=== PATIENT | female | born 1995 | race American Indian/Alaskan Native ===

== ENCOUNTER 2016-10-30 08:47 | Inpatient (IN) | payer MEDICAID ==
--- NOTE | 2016-10-30 09:42 | History and Physical Report ---
History of Present Illness Date of examination: 10/30/16 Date of admission: 10/30/16 08:51 Chief complaint: IOL for Gestational Hypertension and abnormal labs History of present illness: Pt is a 21yo @ 39 weeks admitted for IOL for gestational hypertension. Is a patient of [facility] since 7.3 weeks. Course has been uneverntful complicated by increasing BP during . Co managed by [facility]. GBS negative. Past History Past Medical History: no pertinent history Past Surgical History: no surgical history Family/Genetic History: hypertension, other (MS) Social history: single. denies: smoking, alcohol abuse, prescription drug abuse , IV drug use - Obstetrical History Expected Date of Delivery: 11/06/16 Actual Gestation: 39 Week(s) 0 Day(s) : 1 Para: 0 Hx # Term Pregnancies: 0 Number of Pregnancies: 0 Spontaneous Abortions: 0 Induced : 0 Number of Living Children: 0 Medications and Allergies Allergies Allergy/AdvReac Type Severity Reaction Status Date / Time No Known Allergies Allergy Unverified 02/12/14 16:02 Home Medications Medication Instructions Recorded Confirmed Last Taken Type Acetaminophen/Codeine [Tylenol #3] 1 tab PO Q6H PRN #14 tab 02/12/14 Unknown Rx Amoxicillin [Trimox CAP] 500 mg PO Q8H #30 capsule 02/12/14 Unknown Rx Ondansetron [Zofran Odt] 4 mg PO Q4H #14 tab.rapdis 02/12/14 Unknown Rx Review of Systems All systems: negative - Vital Signs Vital signs: Vital Signs Pulse BP 116 H 179/87 10/30/16 09:17 10/30/16 09:17 Temp Pulse Resp BP Pulse Ox 116 H 179/87 10/30/16 09:17 10/30/16 09:17 - Physical Exam Cardiovascular: Regular rate Lungs: Positive: Normal air movement Vagina: Positive: normal moisture Uterus: Positive: enlarged Extremities: Positive: normal Deep Tendon Reflex Grade: Normal +2 - Obstetrical FHR: category 1 Uterine Contraction Monitor Mode: External Cervical Dilatation: 1.5 Cervical Effacement Percentage: 50 station: -1 Uterine Contraction Pattern: Irregular Uterine Tone Measurement Phase: Resting Uterine Contraction Intensity: Moderate Results All other labs normal. Assessment and Plan A: IUP@ 39 weeks, IOL for GHTN Category 1 tracing Comfortable with contractions GBS negative P: Admit for IOL PIH labs Continuous monitoring Pitocin argumentation IV pain medication/epidural per pt desire
[2016-10-30] MEDS ORDERED: XYLOCAINE 2% INFILTRATI ONE ×2 (10:00→18:38)
[2016-10-30] MEDS ORDERED: NARCAN 0.4 MG/1 ML IV PRN (10:00)
[2016-10-30] MEDS ORDERED: SUBLIMAZE IV PRN (10:00)
[2016-10-30] MEDS ORDERED: BRETHINE IVP PRN (10:00)
[2016-10-30] MEDS ORDERED: STADOL IV PRN (10:00)
[2016-10-30] MEDS ORDERED: PITOCin/NS 20 UNIT/1000ML DRIP 20 UNITS/1,000 ML BAG IV SCH (10:00)
[2016-10-30] MEDS ORDERED: BRETHINE SUB-Q PRN (10:00)
[2016-10-30] MEDS ORDERED: ePHEDrine SULFATE IV PRN (10:00)
[2016-10-30] MEDS ORDERED: PHENERGAN PO PRN (10:00)
[2016-10-30 12:03] LABS: Hematocrit 38.3 % (30.3-42.9); Hemoglobin 12.4 gm/dl (10.1-14.3); Mean Corpuscular HGB Conc 32 % (30-34); Mean Corpuscular Hemoglobin 29 pg (28-32); Mean Corpuscular Volume 90 fl (79-97); Platelet Count 201 K/mm3 (140-440); Red Blood Count 4.24 M/mm3 (3.65-5.03); Red Cell Distribution Width 14.4 % (13.2-15.2); White Blood Count 10.8 K/mm3 (4.5-11.0)
[2016-10-30] MEDS: LACTATED RINGERS 1,000 ML IV SCH ×2 (12:21→16:02)
[2016-10-30] MEDS: PITOCin/NS 30 UNIT/500ML 30 UNITS/500 ML BAG IV SCH ×9 (12:27→18:10)
[2016-10-30] MEDS ORDERED: CERVIDIL VG ONE (19:00)
[2016-10-30 21:37] LABS: Bacteria,Urine 2+ /HPF (Negative); Bilirubin,Urine NEG (Negative); Blood,Urine NEG (Negative); Ketones,Urine NEG (Negative); Leukocyte Esterase,Urine LG (Negative); Mucus,Urine 3+ /HPF; Nitrite,Urine NEG (Negative); Urobilinogen,Urine < 2.0 mg/dL (<2.0)
[2016-10-30 21:41] LABS: Alanine Aminotransferase 19 units/L (7-56); Lactate Dehydrogenase 383 units/L (91-180)
[2016-10-31] MEDS: LACTATED RINGERS 1,000 ML IV SCH ×4 (02:44→15:45)
--- NOTE | 2016-10-31 06:41 | Progress Note ---
Assessment and Plan A: IUP@ 39 weeks, IOL for GHTN Category 1 tracing Comfortable with contractions GBS negative P: Continue routine labor management Continuous monitoring Hold Pitocin argumentation 1900 for dinner Cervidil overnight IV pain medication/epidural per pt desire Subjective - Subjective Date of service: 10/31/16 Principal diagnosis: IOL Interval history: Pt is a 21yo @ 39 weeks admitted for IOL for gestational hypertension. Is a patient of [facility] since 7.3 weeks. Course has been uneverntful complicated by increasing BP during . Co managed by [facility]. GBS negative. Objective - Vital Signs Vital Signs: Vital Signs - 12hr 10/30/16 10/30/16 10/30/16 18:53 18:54 18:59 Temperature Pulse Rate 99 H 95 H 89 Pulse Rate [ From Monitor] Respiratory Rate Blood Pressure Blood Pressure [Right Arm] O2 Sat by Pulse 82 L 97 97 Oximetry 10/30/16 10/30/16 10/30/16 19:01 19:04 19:09 Temperature Pulse Rate 92 H 95 H 99 H Pulse Rate [ From Monitor] Respiratory Rate Blood Pressure 109/53 Blood Pressure [Right Arm] O2 Sat by Pulse 96 96 Oximetry 10/30/16 10/30/16 10/30/16 19:14 19:28 19:29 Temperature 98.4 F Pulse Rate 89 95 H Pulse Rate [ 95 H From Monitor] Respiratory 20 Rate Blood Pressure 156/80 Blood Pressure 156/80 [Right Arm] O2 Sat by Pulse 96 Oximetry 10/30/16 10/30/16 10/30/16 21:30 21:31 21:36 Temperature Pulse Rate 100 H 101 H 109 H Pulse Rate [ From Monitor] Respiratory Rate Blood Pressure 123/58 Blood Pressure [Right Arm] O2 Sat by Pulse 97 98 Oximetry 10/30/16 10/30/16 10/30/16 21:41 21:46 21:51 Temperature Pulse Rate 101 H 105 H 108 H Pulse Rate [ From Monitor] Respiratory Rate Blood Pressure Blood Pressure [Right Arm] O2 Sat by Pulse 98 98 98 Oximetry 10/30/16 10/30/16 10/30/16 21:56 22:01 22:06 Temperature Pulse Rate 109 H 106 H 105 H Pulse Rate [ From Monitor] Respiratory Rate Blood Pressure Blood Pressure [Right Arm] O2 Sat by Pulse 97 98 98 Oximetry 10/30/16 10/30/16 10/30/16 22:11 22:16 22:21 Temperature Pulse Rate 96 H 99 H 98 H Pulse Rate [ From Monitor] Respiratory Rate Blood Pressure Blood Pressure [Right Arm] O2 Sat by Pulse 97 98 98 Oximetry 10/30/16 10/30/16 10/30/16 22:26 22:31 22:36 Temperature Pulse Rate 97 H 88 91 H Pulse Rate [ From Monitor] Respiratory Rate Blood Pressure 115/53 Blood Pressure [Right Arm] O2 Sat by Pulse 97 97 97 Oximetry 10/30/16 10/30/16 10/30/16 22:41 22:46 22:51 Temperature Pulse Rate 86 96 H 92 H Pulse Rate [ From Monitor] Respiratory Rate Blood Pressure Blood Pressure [Right Arm] O2 Sat by Pulse 97 97 97 Oximetry 10/30/16 10/30/16 10/30/16 22:56 23:01 23:06 Temperature Pulse Rate 95 H 89 92 H Pulse Rate [ From Monitor] Respiratory Rate Blood Pressure Blood Pressure [Right Arm] O2 Sat by Pulse 97 96 96 Oximetry 10/30/16 10/30/16 10/30/16 23:11 23:16 23:21 Temperature Pulse Rate 82 86 102 H Pulse Rate [ From Monitor] Respiratory Rate Blood Pressure Blood Pressure [Right Arm] O2 Sat by Pulse 97 97 98 Oximetry 10/30/16 10/30/16 10/30/16 23:26 23:31 23:32 Temperature Pulse Rate 111 H 93 H 93 H Pulse Rate [ From Monitor] Respiratory Rate Blood Pressure 117/60 Blood Pressure [Right Arm] O2 Sat by Pulse 97 99 Oximetry 10/30/16 10/30/16 10/30/16 23:40 23:53 23:58 Temperature 98.6 F Pulse Rate 94 H 99 H Pulse Rate [ From Monitor] Respiratory 20 Rate Blood Pressure Blood Pressure [Right Arm] O2 Sat by Pulse 100 100 Oximetry 10/31/16 10/31/16 10/31/16 00:03 00:08 00:13 Temperature Pulse Rate 97 H 102 H 92 H Pulse Rate [ From Monitor] Respiratory Rate Blood Pressure Blood Pressure [Right Arm] O2 Sat by Pulse 100 100 100 Oximetry 10/31/16 10/31/16 10/31/16 00:18 00:23 00:37 Temperature Pulse Rate 97 H 99 H 104 H Pulse Rate [ From Monitor] Respiratory Rate Blood Pressure Blood Pressure [Right Arm] O2 Sat by Pulse 100 100 100 Oximetry 10/31/16 10/31/16 10/31/16 00:42 00:47 00:52 Temperature Pulse Rate 101 H 98 H 103 H Pulse Rate [ From Monitor] Respiratory Rate Blood Pressure Blood Pressure [Right Arm] O2 Sat by Pulse 99 99 99 Oximetry 10/31/16 10/31/16 10/31/16 00:57 01:02 01:07 Temperature Pulse Rate 93 H 108 H 91 H Pulse Rate [ From Monitor] Respiratory Rate Blood Pressure Blood Pressure [Right Arm] O2 Sat by Pulse 99 99 99 Oximetry 10/31/16 10/31/16 10/31/16 01:12 01:17 01:22 Temperature Pulse Rate 102 H 99 H 98 H Pulse Rate [ From Monitor] Respiratory Rate Blood Pressure Blood Pressure [Right Arm] O2 Sat by Pulse 98 99 98 Oximetry 10/31/16 10/31/16 10/31/16 01:27 01:33 01:38 Temperature Pulse Rate 118 H 106 H 111 H Pulse Rate [ From Monitor] Respiratory Rate Blood Pressure Blood Pressure [Right Arm] O2 Sat by Pulse 97 99 99 Oximetry 10/31/16 10/31/16 10/31/16 01:43 01:48 01:53 Temperature Pulse Rate 98 H 104 H 101 H Pulse Rate [ From Monitor] Respiratory Rate Blood Pressure Blood Pressure [Right Arm] O2 Sat by Pulse 97 96 98 Oximetry 10/31/16 10/31/16 10/31/16 01:58 02:03 02:08 Temperature Pulse Rate 113 H 106 H 96 H Pulse Rate [ From Monitor] Respiratory Rate Blood Pressure Blood Pressure [Right Arm] O2 Sat by Pulse 97 95 96 Oximetry 10/31/16 10/31/16 10/31/16 02:13 02:18 02:23 Temperature Pulse Rate 101 H 95 H 98 H Pulse Rate [ From Monitor] Respiratory Rate Blood Pressure Blood Pressure [Right Arm] O2 Sat by Pulse 96 95 96 Oximetry 10/31/16 10/31/16 10/31/16 02:28 02:31 02:33 Temperature Pulse Rate 99 H 111 H 110 H Pulse Rate [ From Monitor] Respiratory Rate Blood Pressure 126/61 Blood Pressure [Right Arm] O2 Sat by Pulse 95 96 Oximetry 10/31/16 10/31/16 10/31/16 02:38 02:41 02:43 Temperature 97.9 F Pulse Rate 98 H 94 H Pulse Rate [ From Monitor] Respiratory 20 Rate Blood Pressure Blood Pressure [Right Arm] O2 Sat by Pulse 96 96 Oximetry 10/31/16 10/31/16 10/31/16 02:48 02:53 02:58 Temperature Pulse Rate 94 H 94 H 85 Pulse Rate [ From Monitor] Respiratory Rate Blood Pressure Blood Pressure [Right Arm] O2 Sat by Pulse 96 96 96 Oximetry 10/31/16 10/31/16 10/31/16 03:03 03:08 03:13 Temperature Pulse Rate 100 H 89 93 H Pulse Rate [ From Monitor] Respiratory Rate Blood Pressure Blood Pressure [Right Arm] O2 Sat by Pulse 95 96 96 Oximetry 10/31/16 10/31/16 10/31/16 03:16 03:18 03:23 Temperature Pulse Rate 91 H 107 H 92 H Pulse Rate [ From Monitor] Respiratory Rate Blood Pressure Blood Pressure [Right Arm] O2 Sat by Pulse 94 97 96 Oximetry 10/31/16 10/31/16 10/31/16 03:28 03:30 03:33 Temperature Pulse Rate 99 H 88 88 Pulse Rate [ From Monitor] Respiratory Rate Blood Pressure 131/60 Blood Pressure [Right Arm] O2 Sat by Pulse 97 96 Oximetry 10/31/16 10/31/16 10/31/16 03:38 03:43 03:48 Temperature Pulse Rate 75 85 76 Pulse Rate [ From Monitor] Respiratory Rate Blood Pressure Blood Pressure [Right Arm] O2 Sat by Pulse 96 97 96 Oximetry 10/31/16 10/31/16 10/31/16 03:53 03:58 04:03 Temperature Pulse Rate 89 79 85 Pulse Rate [ From Monitor] Respiratory Rate Blood Pressure Blood Pressure [Right Arm] O2 Sat by Pulse 96 96 97 Oximetry 10/31/16 10/31/16 10/31/16 04:08 04:13 04:18 Temperature Pulse Rate 84 86 107 H Pulse Rate [ From Monitor] Respiratory Rate Blood Pressure Blood Pressure [Right Arm] O2 Sat by Pulse 96 96 97 Oximetry 10/31/16 10/31/16 10/31/16 04:23 04:28 04:31 Temperature Pulse Rate 79 98 H 76 Pulse Rate [ From Monitor] Respiratory Rate Blood Pressure 109/56 Blood Pressure [Right Arm] O2 Sat by Pulse 97 97 Oximetry 10/31/16 10/31/16 10/31/16 04:33 04:38 04:43 Temperature Pulse Rate 83 83 82 Pulse Rate [ From Monitor] Respiratory Rate Blood Pressure Blood Pressure [Right Arm] O2 Sat by Pulse 98 97 98 Oximetry 10/31/16 10/31/16 10/31/16 04:48 04:53 04:58 Temperature Pulse Rate 78 85 85 Pulse Rate [ From Monitor] Respiratory Rate Blood Pressure Blood Pressure [Right Arm] O2 Sat by Pulse 98 98 99 Oximetry 10/31/16 10/31/16 10/31/16 05:03 05:08 05:13 Temperature Pulse Rate 82 79 94 H Pulse Rate [ From Monitor] Respiratory Rate Blood Pressure Blood Pressure [Right Arm] O2 Sat by Pulse 99 98 99 Oximetry 10/31/16 10/31/16 10/31/16 05:18 05:23 05:25 Temperature Pulse Rate 80 85 111 H Pulse Rate [ From Monitor] Respiratory Rate Blood Pressure Blood Pressure [Right Arm] O2 Sat by Pulse 99 99 72 L Oximetry 10/31/16 10/31/16 10/31/16 05:28 05:30 05:33 Temperature Pulse Rate 77 83 78 Pulse Rate [ From Monitor] Respiratory Rate Blood Pressure 116/68 Blood Pressure [Right Arm] O2 Sat by Pulse 97 97 Oximetry 10/31/16 10/31/16 10/31/16 05:38 05:43 05:48 Temperature Pulse Rate 84 92 H 81 Pulse Rate [ From Monitor] Respiratory Rate Blood Pressure Blood Pressure [Right Arm] O2 Sat by Pulse 97 96 96 Oximetry 10/31/16 10/31/16 10/31/16 05:53 05:58 06:03 Temperature Pulse Rate 93 H 82 110 H Pulse Rate [ From Monitor] Respiratory Rate Blood Pressure Blood Pressure [Right Arm] O2 Sat by Pulse 97 96 96 Oximetry 10/31/16 06:08 Temperature Pulse Rate 87 Pulse Rate [ From Monitor] Respiratory Rate Blood Pressure Blood Pressure [Right Arm] O2 Sat by Pulse 96 Oximetry - Exam Cardiovascular: Regular rate Lungs: Normal air movement FHR: category 1 Uterine Contraction Monitor Mode: External Cervical Dilatation: 1.5 Cervical Effacement Percentage: 50 station: -2 Uterine Contraction Pattern: Irregular Uterine Tone Measurement Phase: Resting Uterine Contraction Intensity: Mild Extremities: normal Deep Tendon Reflex Grade: Normal +2 - Labs Labs: Abnormal Labs 10/30/16 10/30/16 10:30 10:30 Creatinine 0.3 L AST 42 H Lactate Dehydrogenase 383 H U Epithel Cells (Auto) 36.0 H Laboratory Results - last 24 hr 10/30/16 10/30/16 10/30/16 10:30 10:30 10:30 WBC 10.8 RBC 4.24 Hgb 12.4 Hct 38.3 MCV 90 MCH 29 MCHC 32 RDW 14.4 Plt Count 201 Creatinine Estimated GFR Uric Acid AST ALT Lactate Dehydrogenase Urine Color Yellow Urine Turbidity Cloudy Urine pH 6.0 Ur Specific [place] 1.017 Urine Protein 30 mg/dl Urine Glucose (UA) Neg Urine Ketones Neg Urine Blood Neg Urine Nitrite Neg Urine Bilirubin Neg Urine Urobilinogen < 2.0 Ur Leukocyte Esterase Lg Urine WBC (Auto) 4.0 Urine RBC (Auto) 5.0 U Epithel Cells (Auto) 36.0 H Urine Bacteria (Auto) 2+ Urine Mucus 3+ Blood Type A POSITIVE Antibody Screen Negative 10/30/16 10:30 WBC RBC Hgb Hct MCV MCH MCHC RDW Plt Count Creatinine 0.3 L Estimated GFR > 60 Uric Acid 5.0 AST 42 H ALT 19 Lactate Dehydrogenase 383 H Urine Color Urine Turbidity Urine pH Ur Specific [place] Urine Protein Urine Glucose (UA) Urine Ketones Urine Blood Urine Nitrite Urine Bilirubin Urine Urobilinogen Ur Leukocyte Esterase Urine WBC (Auto) Urine RBC (Auto) U Epithel Cells (Auto) Urine Bacteria (Auto) Urine Mucus Blood Type Antibody Screen Reviewed - Allied health notes Allied health notes reviewed: nursing
--- NOTE | 2016-10-31 10:25 | Progress Note ---
Assessment and Plan A: IUP at 39 1/7 Weeks GHTN Category I Tracing SROM GBS Negative P: Cook's Cervical Ripening Balloon Placed Low Dose Pitocin IV Pain Management Subjective - Subjective Date of service: 10/31/16 Principal diagnosis: IOL Patient reports: loss of fluid (SROM at 0830 this morning; Clear fluids), movement normal, contractions Objective - Vital Signs Vital Signs: Vital Signs - 12hr 10/30/16 10/30/16 10/30/16 22:26 22:31 22:36 Temperature Pulse Rate 97 H 88 91 H Pulse Rate [ From Monitor] Respiratory Rate Blood Pressure 115/53 Blood Pressure [Right Arm] O2 Sat by Pulse 97 97 97 Oximetry 10/30/16 10/30/16 10/30/16 22:41 22:46 22:51 Temperature Pulse Rate 86 96 H 92 H Pulse Rate [ From Monitor] Respiratory Rate Blood Pressure Blood Pressure [Right Arm] O2 Sat by Pulse 97 97 97 Oximetry 10/30/16 10/30/16 10/30/16 22:56 23:01 23:06 Temperature Pulse Rate 95 H 89 92 H Pulse Rate [ From Monitor] Respiratory Rate Blood Pressure Blood Pressure [Right Arm] O2 Sat by Pulse 97 96 96 Oximetry 10/30/16 10/30/16 10/30/16 23:11 23:16 23:21 Temperature Pulse Rate 82 86 102 H Pulse Rate [ From Monitor] Respiratory Rate Blood Pressure Blood Pressure [Right Arm] O2 Sat by Pulse 97 97 98 Oximetry 10/30/16 10/30/16 10/30/16 23:26 23:31 23:32 Temperature Pulse Rate 111 H 93 H 93 H Pulse Rate [ From Monitor] Respiratory Rate Blood Pressure 117/60 Blood Pressure [Right Arm] O2 Sat by Pulse 97 99 Oximetry 10/30/16 10/30/16 10/30/16 23:40 23:53 23:58 Temperature 98.6 F Pulse Rate 94 H 99 H Pulse Rate [ From Monitor] Respiratory 20 Rate Blood Pressure Blood Pressure [Right Arm] O2 Sat by Pulse 100 100 Oximetry 10/31/16 10/31/16 10/31/16 00:03 00:08 00:13 Temperature Pulse Rate 97 H 102 H 92 H Pulse Rate [ From Monitor] Respiratory Rate Blood Pressure Blood Pressure [Right Arm] O2 Sat by Pulse 100 100 100 Oximetry 0410/31/16 10/31/16 00:18 00:23 00:37 Temperature Pulse Rate 97 H 99 H 104 H Pulse Rate [ From Monitor] Respiratory Rate Blood Pressure Blood Pressure [Right Arm] O2 Sat by Pulse 100 100 100 Oximetry 10/31/16 10/31/16 10/31/16 00:42 00:47 00:52 Temperature Pulse Rate 101 H 98 H 103 H Pulse Rate [ From Monitor] Respiratory Rate Blood Pressure Blood Pressure [Right Arm] O2 Sat by Pulse 99 99 99 Oximetry 10/31/16 10/31/16 10/31/16 00:57 01:02 01:07 Temperature Pulse Rate 93 H 108 H 91 H Pulse Rate [ From Monitor] Respiratory Rate Blood Pressure Blood Pressure [Right Arm] O2 Sat by Pulse 99 99 99 Oximetry 10/31/16 10/31/16 10/31/16 01:12 01:17 01:22 Temperature Pulse Rate 102 H 99 H 98 H Pulse Rate [ From Monitor] Respiratory Rate Blood Pressure Blood Pressure [Right Arm] O2 Sat by Pulse 98 99 98 Oximetry 10/31/16 10/31/16 10/31/16 01:27 01:33 01:38 Temperature Pulse Rate 118 H 106 H 111 H Pulse Rate [ From Monitor] Respiratory Rate Blood Pressure Blood Pressure [Right Arm] O2 Sat by Pulse 97 99 99 Oximetry 10/31/16 10/31/16 10/31/16 01:43 01:48 01:53 Temperature Pulse Rate 98 H 104 H 101 H Pulse Rate [ From Monitor] Respiratory Rate Blood Pressure Blood Pressure [Right Arm] O2 Sat by Pulse 97 96 98 Oximetry 10/31/16 10/31/16 10/31/16 01:58 02:03 02:08 Temperature Pulse Rate 113 H 106 H 96 H Pulse Rate [ From Monitor] Respiratory Rate Blood Pressure Blood Pressure [Right Arm] O2 Sat by Pulse 97 95 96 Oximetry 10/31/16 10/31/16 10/31/16 02:13 02:18 02:23 Temperature Pulse Rate 101 H 95 H 98 H Pulse Rate [ From Monitor] Respiratory Rate Blood Pressure Blood Pressure [Right Arm] O2 Sat by Pulse 96 95 96 Oximetry 10/31/16 10/31/16 10/31/16 02:28 02:31 02:33 Temperature Pulse Rate 99 H 111 H 110 H Pulse Rate [ From Monitor] Respiratory Rate Blood Pressure 126/61 Blood Pressure [Right Arm] O2 Sat by Pulse 95 96 Oximetry 10/31/16 10/31/16 10/31/16 02:38 02:41 02:43 Temperature 97.9 F Pulse Rate 98 H 94 H Pulse Rate [ From Monitor] Respiratory 20 Rate Blood Pressure Blood Pressure [Right Arm] O2 Sat by Pulse 96 96 Oximetry 10/31/16 10/31/16 10/31/16 02:48 02:53 02:58 Temperature Pulse Rate 94 H 94 H 85 Pulse Rate [ From Monitor] Respiratory Rate Blood Pressure Blood Pressure [Right Arm] O2 Sat by Pulse 96 96 96 Oximetry 10/31/16 10/31/16 10/31/16 03:03 03:08 03:13 Temperature Pulse Rate 100 H 89 93 H Pulse Rate [ From Monitor] Respiratory Rate Blood Pressure Blood Pressure [Right Arm] O2 Sat by Pulse 95 96 96 Oximetry 10/31/16 10/31/16 10/31/16 03:16 03:18 03:23 Temperature Pulse Rate 91 H 107 H 92 H Pulse Rate [ From Monitor] Respiratory Rate Blood Pressure Blood Pressure [Right Arm] O2 Sat by Pulse 94 97 96 Oximetry 10/31/16 10/31/16 10/31/16 03:28 03:30 03:33 Temperature Pulse Rate 99 H 88 88 Pulse Rate [ From Monitor] Respiratory Rate Blood Pressure 131/60 Blood Pressure [Right Arm] O2 Sat by Pulse 97 96 Oximetry 10/31/16 10/31/16 10/31/16 03:38 03:43 03:48 Temperature Pulse Rate 75 85 76 Pulse Rate [ From Monitor] Respiratory Rate Blood Pressure Blood Pressure [Right Arm] O2 Sat by Pulse 96 97 96 Oximetry 10/31/16 10/31/16 10/31/16 03:53 03:58 04:03 Temperature Pulse Rate 89 79 85 Pulse Rate [ From Monitor] Respiratory Rate Blood Pressure Blood Pressure [Right Arm] O2 Sat by Pulse 96 96 97 Oximetry 10/31/16 10/31/16 10/31/16 04:08 04:13 04:18 Temperature Pulse Rate 84 86 107 H Pulse Rate [ From Monitor] Respiratory Rate Blood Pressure Blood Pressure [Right Arm] O2 Sat by Pulse 96 96 97 Oximetry 10/31/16 10/31/16 10/31/16 04:23 04:28 04:31 Temperature Pulse Rate 79 98 H 76 Pulse Rate [ From Monitor] Respiratory Rate Blood Pressure 109/56 Blood Pressure [Right Arm] O2 Sat by Pulse 97 97 Oximetry 10/31/16 10/31/16 10/31/16 04:33 04:38 04:43 Temperature Pulse Rate 83 83 82 Pulse Rate [ From Monitor] Respiratory Rate Blood Pressure Blood Pressure [Right Arm] O2 Sat by Pulse 98 97 98 Oximetry 10/31/16 10/31/16 10/31/16 04:48 04:53 04:58 Temperature Pulse Rate 78 85 85 Pulse Rate [ From Monitor] Respiratory Rate Blood Pressure Blood Pressure [Right Arm] O2 Sat by Pulse 98 98 99 Oximetry 10/31/16 10/31/16 10/31/16 05:03 05:08 05:13 Temperature Pulse Rate 82 79 94 H Pulse Rate [ From Monitor] Respiratory Rate Blood Pressure Blood Pressure [Right Arm] O2 Sat by Pulse 99 98 99 Oximetry 10/31/16 10/31/16 10/31/16 05:18 05:23 05:25 Temperature Pulse Rate 80 85 111 H Pulse Rate [ From Monitor] Respiratory Rate Blood Pressure Blood Pressure [Right Arm] O2 Sat by Pulse 99 99 72 L Oximetry 10/31/16 10/31/16 10/31/16 05:28 05:30 05:33 Temperature Pulse Rate 77 83 78 Pulse Rate [ From Monitor] Respiratory Rate Blood Pressure 116/68 Blood Pressure [Right Arm] O2 Sat by Pulse 97 97 Oximetry 10/31/16 10/31/16 10/31/16 05:38 05:43 05:48 Temperature Pulse Rate 84 92 H 81 Pulse Rate [ From Monitor] Respiratory Rate Blood Pressure Blood Pressure [Right Arm] O2 Sat by Pulse 97 96 96 Oximetry 10/31/16 10/31/16 10/31/16 05:53 05:58 06:03 Temperature Pulse Rate 93 H 82 110 H Pulse Rate [ From Monitor] Respiratory Rate Blood Pressure Blood Pressure [Right Arm] O2 Sat by Pulse 97 96 96 Oximetry 10/31/16 10/31/16 10/31/16 06:08 07:00 07:12 Temperature 98.7 F Pulse Rate 87 93 H Pulse Rate [ 99 H From Monitor] Respiratory 22 Rate Blood Pressure 117/61 Blood Pressure 127/73 [Right Arm] O2 Sat by Pulse 96 Oximetry 10/31/16 10/31/1617 07:13 07:18 07:23 Temperature Pulse Rate 90 104 H 97 H Pulse Rate [ From Monitor] Respiratory Rate Blood Pressure Blood Pressure [Right Arm] O2 Sat by Pulse 99 99 98 Oximetry 10/31/16 10/31/16 10/31/16 07:28 07:30 07:33 Temperature Pulse Rate 85 90 98 H Pulse Rate [ From Monitor] Respiratory Rate Blood Pressure 127/73 Blood Pressure [Right Arm] O2 Sat by Pulse 99 100 Oximetry 10/31/16 10/31/16 10/31/16 07:38 07:43 07:48 Temperature Pulse Rate 87 88 92 H Pulse Rate [ From Monitor] Respiratory Rate Blood Pressure Blood Pressure [Right Arm] O2 Sat by Pulse 99 100 100 Oximetry 10/31/16 10/31/16 10/31/16 07:53 07:58 08:03 Temperature Pulse Rate 103 H 106 H 87 Pulse Rate [ From Monitor] Respiratory Rate Blood Pressure Blood Pressure [Right Arm] O2 Sat by Pulse 99 100 99 Oximetry 10/31/16 10/31/16 10/31/16 08:08 08:13 08:18 Temperature Pulse Rate 97 H 107 H 104 H Pulse Rate [ From Monitor] Respiratory Rate Blood Pressure Blood Pressure [Right Arm] O2 Sat by Pulse 100 100 99 Oximetry 10/31/16 10/31/16 10/31/16 08:23 08:28 08:31 Temperature Pulse Rate 101 H 100 H 112 H Pulse Rate [ From Monitor] Respiratory Rate Blood Pressure 111/76 Blood Pressure [Right Arm] O2 Sat by Pulse 99 99 Oximetry 10/31/16 10/31/16 10/31/16 08:40 08:45 08:50 Temperature Pulse Rate 99 H 96 H 103 H Pulse Rate [ From Monitor] Respiratory Rate Blood Pressure Blood Pressure [Right Arm] O2 Sat by Pulse 100 97 98 Oximetry 10/31/16 10/31/16 10/31/16 08:55 09:00 09:05 Temperature Pulse Rate 100 H 108 H 96 H Pulse Rate [ From Monitor] Respiratory Rate Blood Pressure Blood Pressure [Right Arm] O2 Sat by Pulse 97 99 99 Oximetry 10/31/16 10/31/16 10/31/16 09:10 09:45 09:46 Temperature Pulse Rate 98 H 112 H 118 H Pulse Rate [ From Monitor] Respiratory Rate Blood Pressure 131/107 134/72 Blood Pressure [Right Arm] O2 Sat by Pulse 98 Oximetry - Exam Breasts: normal Cardiovascular: Regular rate Lungs: Normal air movement Abdomen: Present: normal appearance, soft, normal bowel sounds Uterus: Present: firm, fundal height above umbilicus FHR: category 1 Uterine Contraction Monitor Mode: External Cervical Dilatation: 1 (leaking a small amount of clear fluid) Cervical Effacement Percentage: 70 station: -2 Uterine Contraction Frequency (min): 4-9 Uterine Contraction Pattern: Irregular Uterine Contraction Intensity: Mild Extremities: normal - Labs Labs: Abnormal Labs 10/30/16 10/30/16 10:30 10:30 Creatinine 0.3 L AST 42 H Lactate Dehydrogenase 383 H U Epithel Cells (Auto) 36.0 H Laboratory Results - last 24 hr 10/30/16 10/30/16 10/30/16 10:30 10:30 10:30 WBC 10.8 RBC 4.24 Hgb 12.4 Hct 38.3 MCV 90 MCH 29 MCHC 32 RDW 14.4 Plt Count 201 Creatinine Estimated GFR Uric Acid AST ALT Lactate Dehydrogenase Urine Color Yellow Urine Turbidity Cloudy Urine pH 6.0 Ur Specific [place] 1.017 Urine Protein 30 mg/dl Urine Glucose (UA) Neg Urine Ketones Neg Urine Blood Neg Urine Nitrite Neg Urine Bilirubin Neg Urine Urobilinogen < 2.0 Ur Leukocyte Esterase Lg Urine WBC (Auto) 4.0 Urine RBC (Auto) 5.0 U Epithel Cells (Auto) 36.0 H Urine Bacteria (Auto) 2+ Urine Mucus 3+ Blood Type A POSITIVE Antibody Screen Negative 10/30/16 10:30 WBC RBC Hgb Hct MCV MCH MCHC RDW Plt Count Creatinine 0.3 L Estimated GFR > 60 Uric Acid 5.0 AST 42 H ALT 19 Lactate Dehydrogenase 383 H Urine Color Urine Turbidity Urine pH Ur Specific [place] Urine Protein Urine Glucose (UA) Urine Ketones Urine Blood Urine Nitrite Urine Bilirubin Urine Urobilinogen Ur Leukocyte Esterase Urine WBC (Auto) Urine RBC (Auto) U Epithel Cells (Auto) Urine Bacteria (Auto) Urine Mucus Blood Type Antibody Screen
--- NOTE | 2016-10-31 12:15 | Progress Note ---
Assessment and Plan A: IUP at 39 1/7 Weeks GHTN Category I Tracing SROM GBS Negative P: Cook's Cervical Ripening Balloon Out Continue Pitocin Augmentation Prepare for Epidural Anesthesia Subjective - Subjective Date of service: 10/31/16 Principal diagnosis: IOL Patient reports: loss of fluid (SROM at 0830 this morning; Clear fluids), movement normal, contractions Objective - Vital Signs Vital Signs: Vital Signs - 12hr 10/31/16 10/31/16 10/31/16 00:18 00:23 00:37 Temperature Pulse Rate 97 H 99 H 104 H Pulse Rate [ From Monitor] Respiratory Rate Blood Pressure Blood Pressure [Right Arm] O2 Sat by Pulse 100 100 100 Oximetry 10/31/16 10/31/16 10/31/16 00:42 00:47 00:52 Temperature Pulse Rate 101 H 98 H 103 H Pulse Rate [ From Monitor] Respiratory Rate Blood Pressure Blood Pressure [Right Arm] O2 Sat by Pulse 99 99 99 Oximetry 10/31/16 10/31/16 10/31/16 00:57 01:02 01:07 Temperature Pulse Rate 93 H 108 H 91 H Pulse Rate [ From Monitor] Respiratory Rate Blood Pressure Blood Pressure [Right Arm] O2 Sat by Pulse 99 99 99 Oximetry 10/31/16 10/31/16 10/31/16 01:12 01:17 01:22 Temperature Pulse Rate 102 H 99 H 98 H Pulse Rate [ From Monitor] Respiratory Rate Blood Pressure Blood Pressure [Right Arm] O2 Sat by Pulse 98 99 98 Oximetry 10/31/16 10/31/16 10/31/16 01:27 01:33 01:38 Temperature Pulse Rate 118 H 106 H 111 H Pulse Rate [ From Monitor] Respiratory Rate Blood Pressure Blood Pressure [Right Arm] O2 Sat by Pulse 97 99 99 Oximetry 10/31/16 10/31/16 10/31/16 01:43 01:48 01:53 Temperature Pulse Rate 98 H 104 H 101 H Pulse Rate [ From Monitor] Respiratory Rate Blood Pressure Blood Pressure [Right Arm] O2 Sat by Pulse 97 96 98 Oximetry 10/31/16 10/31/16 10/31/16 01:58 02:03 02:08 Temperature Pulse Rate 113 H 106 H 96 H Pulse Rate [ From Monitor] Respiratory Rate Blood Pressure Blood Pressure [Right Arm] O2 Sat by Pulse 97 95 96 Oximetry 04/07/0710/31/16 10/31/16 02:13 02:18 02:23 Temperature Pulse Rate 101 H 95 H 98 H Pulse Rate [ From Monitor] Respiratory Rate Blood Pressure Blood Pressure [Right Arm] O2 Sat by Pulse 96 95 96 Oximetry 10/31/16 10/31/16 10/31/16 02:28 02:31 02:33 Temperature Pulse Rate 99 H 111 H 110 H Pulse Rate [ From Monitor] Respiratory Rate Blood Pressure 126/61 Blood Pressure [Right Arm] O2 Sat by Pulse 95 96 Oximetry 10/31/16 10/31/16 10/31/16 02:38 02:41 02:43 Temperature 97.9 F Pulse Rate 98 H 94 H Pulse Rate [ From Monitor] Respiratory 20 Rate Blood Pressure Blood Pressure [Right Arm] O2 Sat by Pulse 96 96 Oximetry 10/31/16 10/31/16 10/31/16 02:48 02:53 02:58 Temperature Pulse Rate 94 H 94 H 85 Pulse Rate [ From Monitor] Respiratory Rate Blood Pressure Blood Pressure [Right Arm] O2 Sat by Pulse 96 96 96 Oximetry 10/31/16 10/31/16 10/31/16 03:03 03:08 03:13 Temperature Pulse Rate 100 H 89 93 H Pulse Rate [ From Monitor] Respiratory Rate Blood Pressure Blood Pressure [Right Arm] O2 Sat by Pulse 95 96 96 Oximetry 10/31/16 10/31/16 10/31/16 03:16 03:18 03:23 Temperature Pulse Rate 91 H 107 H 92 H Pulse Rate [ From Monitor] Respiratory Rate Blood Pressure Blood Pressure [Right Arm] O2 Sat by Pulse 94 97 96 Oximetry 10/31/16 10/31/16 10/31/16 03:28 03:30 03:33 Temperature Pulse Rate 99 H 88 88 Pulse Rate [ From Monitor] Respiratory Rate Blood Pressure 131/60 Blood Pressure [Right Arm] O2 Sat by Pulse 97 96 Oximetry 10/31/16 10/31/16 10/31/16 03:38 03:43 03:48 Temperature Pulse Rate 75 85 76 Pulse Rate [ From Monitor] Respiratory Rate Blood Pressure Blood Pressure [Right Arm] O2 Sat by Pulse 96 97 96 Oximetry 10/31/16 10/31/16 10/31/16 03:53 03:58 04:03 Temperature Pulse Rate 89 79 85 Pulse Rate [ From Monitor] Respiratory Rate Blood Pressure Blood Pressure [Right Arm] O2 Sat by Pulse 96 96 97 Oximetry 10/31/16 10/31/16 10/31/16 04:08 04:13 04:18 Temperature Pulse Rate 84 86 107 H Pulse Rate [ From Monitor] Respiratory Rate Blood Pressure Blood Pressure [Right Arm] O2 Sat by Pulse 96 96 97 Oximetry 10/31/16 10/31/16 10/31/16 04:23 04:28 04:31 Temperature Pulse Rate 79 98 H 76 Pulse Rate [ From Monitor] Respiratory Rate Blood Pressure 109/56 Blood Pressure [Right Arm] O2 Sat by Pulse 97 97 Oximetry 10/31/16 10/31/16 10/31/16 04:33 04:38 04:43 Temperature Pulse Rate 83 83 82 Pulse Rate [ From Monitor] Respiratory Rate Blood Pressure Blood Pressure [Right Arm] O2 Sat by Pulse 98 97 98 Oximetry 10/31/16 10/31/16 10/31/16 04:48 04:53 04:58 Temperature Pulse Rate 78 85 85 Pulse Rate [ From Monitor] Respiratory Rate Blood Pressure Blood Pressure [Right Arm] O2 Sat by Pulse 98 98 99 Oximetry 10/31/16 10/31/16 10/31/16 05:03 05:08 05:13 Temperature Pulse Rate 82 79 94 H Pulse Rate [ From Monitor] Respiratory Rate Blood Pressure Blood Pressure [Right Arm] O2 Sat by Pulse 99 98 99 Oximetry 10/31/16 10/31/16 10/31/16 05:18 05:23 05:25 Temperature Pulse Rate 80 85 111 H Pulse Rate [ From Monitor] Respiratory Rate Blood Pressure Blood Pressure [Right Arm] O2 Sat by Pulse 99 99 72 L Oximetry 10/31/16 10/31/16 10/31/16 05:28 05:30 05:33 Temperature Pulse Rate 77 83 78 Pulse Rate [ From Monitor] Respiratory Rate Blood Pressure 116/68 Blood Pressure [Right Arm] O2 Sat by Pulse 97 97 Oximetry 10/31/16 10/31/16 10/31/16 05:38 05:43 05:48 Temperature Pulse Rate 84 92 H 81 Pulse Rate [ From Monitor] Respiratory Rate Blood Pressure Blood Pressure [Right Arm] O2 Sat by Pulse 97 96 96 Oximetry 10/31/16 10/31/16 10/31/16 05:53 05:58 06:03 Temperature Pulse Rate 93 H 82 110 H Pulse Rate [ From Monitor] Respiratory Rate Blood Pressure Blood Pressure [Right Arm] O2 Sat by Pulse 97 96 96 Oximetry 10/31/16 10/31/16 10/31/16 06:08 07:00 07:12 Temperature 98.7 F Pulse Rate 87 93 H Pulse Rate [ 99 H From Monitor] Respiratory 22 Rate Blood Pressure 117/61 Blood Pressure 127/73 [Right Arm] O2 Sat by Pulse 96 Oximetry 10/31/16 10/31/16 10/31/16 07:13 07:18 07:23 Temperature Pulse Rate 90 104 H 97 H Pulse Rate [ From Monitor] Respiratory Rate Blood Pressure Blood Pressure [Right Arm] O2 Sat by Pulse 99 99 98 Oximetry 10/31/16 10/31/16 10/31/16 07:28 07:30 07:33 Temperature Pulse Rate 85 90 98 H Pulse Rate [ From Monitor] Respiratory Rate Blood Pressure 127/73 Blood Pressure [Right Arm] O2 Sat by Pulse 99 100 Oximetry 10/31/16 10/31/16 10/31/16 07:38 07:43 07:48 Temperature Pulse Rate 87 88 92 H Pulse Rate [ From Monitor] Respiratory Rate Blood Pressure Blood Pressure [Right Arm] O2 Sat by Pulse 99 100 100 Oximetry 10/31/16 10/31/16 10/31/16 07:53 07:58 08:03 Temperature Pulse Rate 103 H 106 H 87 Pulse Rate [ From Monitor] Respiratory Rate Blood Pressure Blood Pressure [Right Arm] O2 Sat by Pulse 99 100 99 Oximetry 10/31/16 10/31/16 10/31/16 08:08 08:13 08:18 Temperature Pulse Rate 97 H 107 H 104 H Pulse Rate [ From Monitor] Respiratory Rate Blood Pressure Blood Pressure [Right Arm] O2 Sat by Pulse 100 100 99 Oximetry 10/31/16 10/31/16 10/31/16 08:23 08:28 08:31 Temperature Pulse Rate 101 H 100 H 112 H Pulse Rate [ From Monitor] Respiratory Rate Blood Pressure 111/76 Blood Pressure [Right Arm] O2 Sat by Pulse 99 99 Oximetry 10/31/16 10/31/16 10/31/16 08:40 08:45 08:50 Temperature Pulse Rate 99 H 96 H 103 H Pulse Rate [ From Monitor] Respiratory Rate Blood Pressure Blood Pressure [Right Arm] O2 Sat by Pulse 100 97 98 Oximetry 10/31/16 10/31/16 10/31/16 08:55 09:00 09:05 Temperature Pulse Rate 100 H 108 H 96 H Pulse Rate [ From Monitor] Respiratory Rate Blood Pressure Blood Pressure [Right Arm] O2 Sat by Pulse 97 99 99 Oximetry 10/31/16 10/31/16 10/31/16 09:10 09:45 09:46 Temperature Pulse Rate 98 H 112 H 118 H Pulse Rate [ From Monitor] Respiratory Rate Blood Pressure 131/107 134/72 Blood Pressure [Right Arm] O2 Sat by Pulse 98 Oximetry 10/31/16 10/31/16 10:30 11:31 Temperature Pulse Rate 82 92 H Pulse Rate [ From Monitor] Respiratory Rate Blood Pressure 119/58 140/73 Blood Pressure [Right Arm] O2 Sat by Pulse Oximetry - Exam Breasts: normal Cardiovascular: Regular rate Lungs: Clear to auscultation, Normal air movement Abdomen: Present: normal appearance, soft, normal bowel sounds Uterus: Present: normal, firm, fundal height above umbilicus FHR: category 1 Uterine Contraction Monitor Mode: External Cervical Dilatation: 6 Cervical Effacement Percentage: 70 station: -2 Uterine Contraction Pattern: Regular Uterine Tone Measurement Phase: Contraction Uterine Contraction Intensity: Moderate Extremities: normal - Labs Labs: Abnormal Labs 10/30/16 10/30/16 10:30 10:30 Creatinine 0.3 L AST 42 H Lactate Dehydrogenase 383 H U Epithel Cells (Auto) 36.0 H Laboratory Results - last 24 hr 10/30/16 10/30/16 10/30/16 10:30 10:30 10:30 Creatinine 0.3 L Estimated GFR > 60 Uric Acid 5.0 AST 42 H ALT 19 Lactate Dehydrogenase 383 H Urine Color Yellow Urine Turbidity Cloudy Urine pH 6.0 Ur Specific [place] 1.017 Urine Protein 30 mg/dl Urine Glucose (UA) Neg Urine Ketones Neg Urine Blood Neg Urine Nitrite Neg Urine Bilirubin Neg Urine Urobilinogen < 2.0 Ur Leukocyte Esterase Lg Urine WBC (Auto) 4.0 Urine RBC (Auto) 5.0 U Epithel Cells (Auto) 36.0 H Urine Bacteria (Auto) 2+ Urine Mucus 3+ Blood Type A POSITIVE Antibody Screen Negative
[2016-10-31] MEDS ORDERED: ePHEDrine SULFATE ONE (12:51)
--- NOTE | 2016-10-31 13:35 | Anesthesia Consultation ---
Anesthesia Consult and Med Hx Date of service: 10/31/16 - Airway Anesthetic Teeth Evaluation: Good ROM Head & Neck: Adequate Mental/Hyoid Distance: Adequate Mallampati Class: Class II Intubation Access Assessment: Probably Good - Pre-Operative Health Status ASA Pre-Surgery Classification: ASA2 Proposed Anesthetic Plan: Epidural, Spinal - Pulmonary Hx Asthma: No - Cardiovascular System Hx Hypertension: Yes - Central Nervous System Hx Seizures: No Hx Psychiatric Problems: No - Endocrine Hx Renal Disease: No Hx Hypothyroidism: No Hx Hyperthyroidism: No - Hematic Hx Anemia: No Hx Sickle Cell Disease: No - Other Systems Hx Alcohol Use: No
[2016-10-31] MEDS ORDERED: ePHEDrine SULFATE IV PRN (14:00)
[2016-10-31] MEDS ORDERED: fentaNYL-BUPIV 2 MCG/ML-0.125% 200 MCG/100 ML BAG EPIDURAL SCH (14:00)
--- NOTE | 2016-10-31 17:50 | Progress Note ---
Assessment and Plan A: IUP at 39 1/7 Weeks GHTN Category I Tracing SROM GBS Negative P: Internals x 2 Continue Pitocin Augmentation Multiple Maternal Position Changes Subjective - Subjective Date of service: 10/31/16 Principal diagnosis: IOL Patient reports: other (Resting comfortably under epidural anesthesia) Objective - Vital Signs Vital Signs: Vital Signs - 12hr 10/31/16 10/31/16 10/31/16 05:48 05:53 05:58 Temperature Pulse Rate 81 93 H 82 Pulse Rate [ From Monitor] Respiratory Rate Blood Pressure Blood Pressure [Right Arm] O2 Sat by Pulse 96 97 96 Oximetry 10/31/16 10/31/16 10/31/16 06:03 06:08 07:00 Temperature 98.7 F Pulse Rate 110 H 87 Pulse Rate [ 99 H From Monitor] Respiratory 22 Rate Blood Pressure Blood Pressure 127/73 [Right Arm] O2 Sat by Pulse 96 96 Oximetry 10/31/16 10/31/16 10/31/16 07:12 07:13 07:18 Temperature Pulse Rate 93 H 90 104 H Pulse Rate [ From Monitor] Respiratory Rate Blood Pressure 117/61 Blood Pressure [Right Arm] O2 Sat by Pulse 99 99 Oximetry 10/31/16 10/31/16 10/31/16 07:23 07:28 07:30 Temperature Pulse Rate 97 H 85 90 Pulse Rate [ From Monitor] Respiratory Rate Blood Pressure 127/73 Blood Pressure [Right Arm] O2 Sat by Pulse 98 99 Oximetry 10/31/16 10/31/16 10/31/16 07:33 07:38 07:43 Temperature Pulse Rate 98 H 87 88 Pulse Rate [ From Monitor] Respiratory Rate Blood Pressure Blood Pressure [Right Arm] O2 Sat by Pulse 100 99 100 Oximetry 10/31/16 10/31/16 10/31/16 07:48 07:53 07:58 Temperature Pulse Rate 92 H 103 H 106 H Pulse Rate [ From Monitor] Respiratory Rate Blood Pressure Blood Pressure [Right Arm] O2 Sat by Pulse 100 99 100 Oximetry 10/31/16 10/31/16 10/31/16 08:03 08:08 08:13 Temperature Pulse Rate 87 97 H 107 H Pulse Rate [ From Monitor] Respiratory Rate Blood Pressure Blood Pressure [Right Arm] O2 Sat by Pulse 99 100 100 Oximetry 10/31/16 10/31/16 10/31/16 08:18 08:23 08:28 Temperature Pulse Rate 104 H 101 H 100 H Pulse Rate [ From Monitor] Respiratory Rate Blood Pressure Blood Pressure [Right Arm] O2 Sat by Pulse 99 99 99 Oximetry 10/31/16 10/31/16 10/31/16 08:31 08:40 08:45 Temperature Pulse Rate 112 H 99 H 96 H Pulse Rate [ From Monitor] Respiratory Rate Blood Pressure 111/76 Blood Pressure [Right Arm] O2 Sat by Pulse 100 97 Oximetry 10/31/16 10/31/16 10/31/16 08:50 08:55 09:00 Temperature Pulse Rate 103 H 100 H 108 H Pulse Rate [ From Monitor] Respiratory Rate Blood Pressure Blood Pressure [Right Arm] O2 Sat by Pulse 98 97 99 Oximetry 10/31/16 10/31/16 10/31/16 09:05 09:10 09:45 Temperature Pulse Rate 96 H 98 H 112 H Pulse Rate [ From Monitor] Respiratory Rate Blood Pressure 131/107 Blood Pressure [Right Arm] O2 Sat by Pulse 99 98 Oximetry 10/31/16 10/31/16 10/31/16 09:46 10:30 11:31 Temperature Pulse Rate 118 H 82 92 H Pulse Rate [ From Monitor] Respiratory Rate Blood Pressure 134/72 119/58 140/73 Blood Pressure [Right Arm] O2 Sat by Pulse Oximetry 10/31/16 10/31/16 10/31/16 12:31 13:13 13:15 Temperature Pulse Rate 92 H 96 H 103 H Pulse Rate [ From Monitor] Respiratory Rate Blood Pressure 135/62 132/67 127/60 Blood Pressure [Right Arm] O2 Sat by Pulse 97 Oximetry 10/31/16 10/31/16 10/31/16 13:17 13:18 13:19 Temperature Pulse Rate 92 H 92 H 86 Pulse Rate [ From Monitor] Respiratory Rate Blood Pressure 125/60 127/57 Blood Pressure [Right Arm] O2 Sat by Pulse 100 Oximetry 10/31/16 10/31/16 10/31/16 13:21 13:23 13:25 Temperature Pulse Rate 85 91 H 93 H Pulse Rate [ From Monitor] Respiratory Rate Blood Pressure 124/56 131/62 129/57 Blood Pressure [Right Arm] O2 Sat by Pulse 99 Oximetry 10/31/16 10/31/16 10/31/16 13:27 13:28 13:29 Temperature Pulse Rate 96 H 87 90 Pulse Rate [ From Monitor] Respiratory Rate Blood Pressure 138/63 132/58 Blood Pressure [Right Arm] O2 Sat by Pulse 97 Oximetry 10/31/16 10/31/16 10/31/16 13:31 13:33 13:35 Temperature Pulse Rate 90 87 95 H Pulse Rate [ From Monitor] Respiratory Rate Blood Pressure 135/62 127/60 128/58 Blood Pressure [Right Arm] O2 Sat by Pulse 100 Oximetry 10/31/16 10/31/16 10/31/16 13:37 13:38 13:39 Temperature Pulse Rate 86 79 83 Pulse Rate [ From Monitor] Respiratory Rate Blood Pressure 126/60 129/58 Blood Pressure [Right Arm] O2 Sat by Pulse 100 Oximetry 10/31/16 10/31/16 10/31/16 13:43 13:48 13:50 Temperature 97.9 F Pulse Rate 89 79 Pulse Rate [ From Monitor] Respiratory 18 Rate Blood Pressure Blood Pressure [Right Arm] O2 Sat by Pulse 100 100 Oximetry 10/31/16 10/31/16 10/31/16 13:53 13:54 13:58 Temperature Pulse Rate 76 82 81 Pulse Rate [ From Monitor] Respiratory Rate Blood Pressure 123/59 Blood Pressure [Right Arm] O2 Sat by Pulse 100 100 Oximetry 10/31/16 10/31/16 10/31/16 14:03 14:08 14:11 Temperature Pulse Rate 79 76 80 Pulse Rate [ From Monitor] Respiratory Rate Blood Pressure 125/59 Blood Pressure [Right Arm] O2 Sat by Pulse 100 100 Oximetry 10/31/16 10/31/16 10/31/16 14:13 14:18 14:23 Temperature Pulse Rate 84 78 84 Pulse Rate [ From Monitor] Respiratory Rate Blood Pressure Blood Pressure [Right Arm] O2 Sat by Pulse 100 100 100 Oximetry 10/31/16 10/31/16 10/31/16 14:25 14:28 14:33 Temperature Pulse Rate 86 84 81 Pulse Rate [ From Monitor] Respiratory Rate Blood Pressure 128/69 Blood Pressure [Right Arm] O2 Sat by Pulse 100 100 Oximetry 10/31/16 10/31/16 10/31/16 14:38 14:40 14:43 Temperature Pulse Rate 89 95 H 91 H Pulse Rate [ From Monitor] Respiratory Rate Blood Pressure 117/57 Blood Pressure [Right Arm] O2 Sat by Pulse 100 100 Oximetry 0410/31/16 10/31/16 14:48 14:53 14:55 Temperature Pulse Rate 93 H 95 H 92 H Pulse Rate [ From Monitor] Respiratory Rate Blood Pressure 128/56 Blood Pressure [Right Arm] O2 Sat by Pulse 100 100 Oximetry 10/31/16 10/31/16 10/31/16 14:58 15:03 15:08 Temperature Pulse Rate 90 94 H 98 H Pulse Rate [ From Monitor] Respiratory Rate Blood Pressure Blood Pressure [Right Arm] O2 Sat by Pulse 100 100 100 Oximetry 10/31/16 10/31/16 10/31/16 15:11 15:13 15:16 Temperature Pulse Rate 90 93 H 101 H Pulse Rate [ From Monitor] Respiratory Rate Blood Pressure 132/68 138/70 Blood Pressure [Right Arm] O2 Sat by Pulse 100 Oximetry 10/31/16 10/31/16 10/31/16 15:18 15:23 15:25 Temperature Pulse Rate 98 H 88 93 H Pulse Rate [ From Monitor] Respiratory Rate Blood Pressure 124/66 Blood Pressure [Right Arm] O2 Sat by Pulse 100 100 Oximetry 10/31/16 10/31/16 10/31/16 15:28 15:33 15:38 Temperature Pulse Rate 94 H 92 H 93 H Pulse Rate [ From Monitor] Respiratory Rate Blood Pressure Blood Pressure [Right Arm] O2 Sat by Pulse 100 100 99 Oximetry 10/31/16 10/31/16 10/31/16 15:39 15:43 15:48 Temperature Pulse Rate 96 H 93 H 93 H Pulse Rate [ From Monitor] Respiratory Rate Blood Pressure 129/69 Blood Pressure [Right Arm] O2 Sat by Pulse 100 100 Oximetry 10/31/16 10/31/16 10/31/16 15:53 15:54 15:58 Temperature Pulse Rate 87 91 H 90 Pulse Rate [ From Monitor] Respiratory Rate Blood Pressure 133/76 Blood Pressure [Right Arm] O2 Sat by Pulse 100 100 Oximetry 10/31/16 10/31/16 10/31/16 16:03 16:08 16:10 Temperature Pulse Rate 92 H 85 100 H Pulse Rate [ From Monitor] Respiratory Rate Blood Pressure 129/78 Blood Pressure [Right Arm] O2 Sat by Pulse 100 100 Oximetry 10/31/16 10/31/16 10/31/16 16:13 16:18 16:23 Temperature Pulse Rate 88 94 H 100 H Pulse Rate [ From Monitor] Respiratory Rate Blood Pressure Blood Pressure [Right Arm] O2 Sat by Pulse 100 100 100 Oximetry 10/31/16 10/31/16 10/31/16 16:25 16:28 16:33 Temperature Pulse Rate 90 86 94 H Pulse Rate [ From Monitor] Respiratory Rate Blood Pressure 124/62 Blood Pressure [Right Arm] O2 Sat by Pulse 100 100 Oximetry 10/31/16 10/31/16 10/31/16 16:38 16:43 16:48 Temperature Pulse Rate 98 H 100 H 104 H Pulse Rate [ From Monitor] Respiratory Rate Blood Pressure Blood Pressure [Right Arm] O2 Sat by Pulse 100 100 100 Oximetry 10/31/16 10/31/16 10/31/16 16:52 16:53 16:55 Temperature Pulse Rate 101 H 100 H 106 H Pulse Rate [ From Monitor] Respiratory Rate Blood Pressure 131/55 131/63 Blood Pressure [Right Arm] O2 Sat by Pulse 100 Oximetry 10/31/16 10/31/16 10/31/16 16:58 17:03 17:08 Temperature Pulse Rate 103 H 88 103 H Pulse Rate [ From Monitor] Respiratory Rate Blood Pressure Blood Pressure [Right Arm] O2 Sat by Pulse 100 100 100 Oximetry 10/31/16 10/31/16 10/31/16 17:11 17:13 17:18 Temperature Pulse Rate 105 H 114 H 107 H Pulse Rate [ From Monitor] Respiratory Rate Blood Pressure 148/63 Blood Pressure [Right Arm] O2 Sat by Pulse 100 100 Oximetry 10/31/16 10/31/16 10/31/16 17:23 17:32 17:37 Temperature Pulse Rate 125 H 118 H 122 H Pulse Rate [ From Monitor] Respiratory Rate Blood Pressure Blood Pressure [Right Arm] O2 Sat by Pulse 100 100 100 Oximetry 10/31/16 10/31/16 17:40 17:42 Temperature Pulse Rate 121 H 119 H Pulse Rate [ From Monitor] Respiratory Rate Blood Pressure 138/63 Blood Pressure [Right Arm] O2 Sat by Pulse 100 Oximetry - Exam Breasts: normal Cardiovascular: Regular rate Lungs: Clear to auscultation, Normal air movement Abdomen: Present: normal appearance, soft, normal bowel sounds Uterus: Present: normal, firm, fundal height above umbilicus FHR: category 1 Uterine Contraction Monitor Mode: Internal Cervical Dilatation: 7 Cervical Effacement Percentage: 80 station: -2 Uterine Contraction Pattern: Regular Uterine Contraction Intensity: Mild Extremities: edema - Labs Labs: Abnormal Labs 10/30/16 10/30/16 10:30 10:30 Creatinine 0.3 L AST 42 H Lactate Dehydrogenase 383 H U Epithel Cells (Auto) 36.0 H Laboratory Results - last 24 hr 10/30/16 10/30/16 10:30 10:30 Creatinine 0.3 L Estimated GFR > 60 Uric Acid 5.0 AST 42 H ALT 19 Lactate Dehydrogenase 383 H Urine Color Yellow Urine Turbidity Cloudy Urine pH 6.0 Ur Specific [place] 1.017 Urine Protein 30 mg/dl Urine Glucose (UA) Neg Urine Ketones Neg Urine Blood Neg Urine Nitrite Neg Urine Bilirubin Neg Urine Urobilinogen < 2.0 Ur Leukocyte Esterase Lg Urine WBC (Auto) 4.0 Urine RBC (Auto) 5.0 U Epithel Cells (Auto) 36.0 H Urine Bacteria (Auto) 2+ Urine Mucus 3+
--- NOTE | 2016-10-31 17:55 | Admit Criteria Form ---
Admission Criteria Documentation: HYPERTENSIVE DISORDERS OF Clinical Indications for Admission to Inpatient Care (Place 'X' for any and all applicable criteria): Admission is indicated for ANY ONE of the following (1)(2)(3)(4)(5): [ ]I. Eclampsia[A][B] [ ]II. Preeclampsia with severe features (ie, severe preeclampsia) indicated by ANY ONE of the following[B][C]: [ ]a) SBP greater than or equal to 160 mm Hg or DBP greater than or equal to 110 mm Hg on 2 occasions at least 4 hours apart while the patient is at bed rest (unless antihypertensive therapy is initiated before this time) [ ]b) Platelet count less than 100,000/mm3 (100 x109/L) [ ]c) Impaired liver function as indicated by ANY ONE of the following: [ ]i. Elevation of liver enzymes (eg, SGOT, SGPT) to twice normal concentration [ ]ii. Severe persistent right upper quadrant or epigastric pain unresponsive to medication and not accounted for by alternative diagnosis [ ]d) Progressive renal insufficiency indicated by ANY ONE of the following: [ ]i. Serum creatinine concentration greater than 1.1 mg/dL (97 micromoles/L) [ ]ii. Doubling (from baseline) of serum creatinine concentration in the absence of other renal disease [ ]e) Pulmonary edema [ ]f) Cerebral or visual symptoms (eg, headache, Altered mental status , changes in vision) [ ]III. Delivery planned due to nonsevere preeclampsia as indicated by ALL of the following: [ ]a) Nonsevere preeclampsia present as indicated by ALL of the following: [ ]i. Woman at 20 or more weeks' gestation [ ]ii. New-onset SBP greater than or equal to 140 mm Hg but less than 160 mm Hg or DBP greater than or equal to 90 mm Hg but less than 110 mm Hg on 2 occasions at least 4 hours apart [ ]iii. Proteinuria present as indicated by ANY ONE of the following: [ ]A. Urinary protein excretion greater than or equal to 300 mg per 24-hour collection (or this amount extrapolated from a shorter timed collection) [ ]B. Protein/creatinine ratio greater than or equal to 0.3 (measured in mg/dL) [ ]b) Delivery indicated due to ANY ONE of the following: [ ]i. Gestational age of 37 0/7 weeks or more [ ]ii. Gestational age of 34 0/7 weeks to 36 6/7 weeks and ANY ONE of the following: [ ]A. Progressive labor or rupture of membranes [ ]B. Abnormal biophysical profile [ ]C. Suspected abruptio placentae [ ]D. Ultrasound estimate of weight less than 5th percentile [ ]E. Other indication for delivery [X]IV. Delivery planned due to gestational hypertension[D] because of ANY ONE of the following: [X]a) Delivery indicated because gestational age of 37 0/7 weeks or more has been reached [ ]b) Gestational age of 34 0/7 weeks to 36 6/7 weeks for which delivery is indicated because of ANY ONE of the following: [ ]i. Progressive labor or rupture of membranes [ ]ii. Abnormal biophysical profile [ ]iii. Suspected abruptio placentae [ ]iv. Ultrasound estimate of weight less than 5th percentile [ ]v. Other indication for delivery [ ]V. Hypertension of any category[E] during with acute end organ damage as indicated by ANY ONE of the following: [ ]a) Hypertensive encephalopathy (eg, Altered mental status that is severe or persistent )(11) [ ]b) Cerebral infarction [ ]c) Intracranial hemorrhage [ ]d) Myocardial ischemia or infarction [ ]e) Pulmonary edema [ ]f) Aortic dissection [ ]g) Seizure [ ]h) Papilledema [ ]i) Microangiopathic hemolytic anemia [ ]j) Visual loss [ ]k) Acute renal failure [ ]) Hypertension during with evidence of compromise as indicated by ANY ONE of the following: [ ]a) Abnormal heart tones [ ]b) Abnormal stress test [ ]c) Abnormal biophysical profile [ ]VII) patient requires inpatient control of blood pressure indicated by (see Hypertensive Disorders of : Observation Care [facility] guideline as appropriate) ALL of the following: [ ]a) SBP is greater than or equal to 160 mm Hg or DBP is greater than or equal to 105 mm Hg [ ]b) Blood pressure cannot be reduced below these levels with outpatient or observation care treatment (eg, oral medications not effective) Extended stay beyond goal length of stay may be needed for : [ ]a) Eclampsia [ ]b) Ongoing compromise [ ]c) Complications of hypertensive disorders of [ ]d) Active comorbidities (eg, heart failure, poorly controlled diabetes, renal insufficiency) [ ]e) Persistent hypertension [ ]f) Delivery planned The original [facility] [employer] content created by [employer] has been revised. The portions of the content which have been revised are identified through the use of italic text or in bold, and [employer] has neither reviewed nor approved the modified material. All other unmodified content is copyright [facility]. Please see references footnoted in the original [facility] [email or web address] edition 2016. Admission Criteria Met: Yes
[2016-10-31] MEDS ORDERED: NACL 0.9% 1000 ML 1,000 ML ONE (19:06)
[2016-10-31] MEDS ORDERED: REGLAN ONE (19:09)
[2016-10-31] MEDS ORDERED: BICITRA ONE (19:09)
[2016-10-31] MEDS ORDERED: PEPCID IV ONE ×2 (19:10→20:00)
[2016-10-31] MEDS ORDERED: REGLAN IV NR (20:00)
[2016-10-31] MEDS ORDERED: NACL 0.9% 1000 ML 1,000 ML VG SCH (20:00)
[2016-10-31] MEDS ORDERED: BICITRA PO ONE (20:00)
[2016-10-31] MEDS ORDERED: ANCEF/STERILE WATER 2 GM/20 ML IV NR (20:00)
--- NOTE | 2016-10-31 20:14 | Event Note ---
Date: 10/31/16 Called to evaluate pt with prolonged deceleration, now resolved. Cx 9/100/V/+1 with thick anterior lip. Will allow pt to recover for 30 mins before trying to push and reduce anterior lip. Hand Welt Butter on her way. Will continue to monitor and intervene as necessary.
[2016-10-31] MEDS: MINERAL OIL PO PRN ×2 (21:08→21:55)
[2016-10-31 22:29] LABS: ISTAT Base Excess -9; ISTAT HCO3 17.2; ISTAT PCO2 33.6 (35-45); ISTAT PH 7.318 (7.35-7.45); ISTAT PO2 38 (80-105); ISTAT SO2 68; ISTAT TCO2 18
[2016-10-31 22:29] LABS: ISTAT Base Excess -8; ISTAT HCO3 17.8; ISTAT PCO2 33.6 (35-45); ISTAT PH 7.331 (7.35-7.45); ISTAT PO2 39 (80-105); ISTAT SO2 71; ISTAT TCO2 19
[2016-10-31] MEDS ORDERED: TUCKS PAD TP PRN (22:36)
[2016-10-31] MEDS ORDERED: MILK OF MAGNESIA PO PRN (22:36)
[2016-10-31] MEDS ORDERED: DERMOPLAST TP PRN (22:36)
[2016-10-31] MEDS ORDERED: LANSINOH TP PRN (22:36)
[2016-10-31] MEDS ORDERED: DULCOLAX PR PRN (22:36)
[2016-10-31] MEDS ORDERED: BENADRYL PO PRN (22:36)
[2016-10-31] MEDS ORDERED: PHENERGAN PO PRN (22:36)
--- NOTE | 2016-10-31 22:53 | Procedure Note ---
OB Delivery Note - Delivery Date of Delivery: 10/31/16 Surgeon: ALICIA REED Estimated blood loss: other (250) - Vaginal Delivery presentation: vertex Delivery position: OA Intrapartum events: meconium, prolonged 2nd stage>2.5hr, extend. bradycardia, mult. late decelerations, mult.variable deceleratio Delivery induction: cervidil Delivery augmentation: rupture of membranes, pitocin Delivery monitor: internal FHT, internal uterine Route of delivery: Delivery placenta: spontaneous Delivery cord: nuchal cord, 3 umbilical vessels Episiotomy: none Delivery laceration: 1st degree Delivery repair: vicryl Anesthesia: epidural Delivery comments: of a live 7'0" male over 1st degree vaginal lacerations under epidural anesthesia with Apgars of 8 and 9 at 2201 on 10/31/2016. Very tight nuchal cords x 3, double clamped and cut on the perineum prior to delivery of the anterior shoulder. not stimulated and handed directly to awaiting NICU/RESP team due to meconium stained fluids. Cord blood gasses collected x 2. Spontaneous delivery of placenta complete and intact with Barnes side presenting at 2207. Fundus is firm and midline located 4 below the U. Lochia is scant. Vaginal lacerations repaired with 2-[address]-1. Placenta to pathology. - Infant A at 1 minute: 8 at 5 minutes: 9 Gender: Male (7'0")
[2016-10-31] MEDS ORDERED: SODIUM CHLORIDE FLUSH SYRINGE 10 ML IV NR (23:00)
[2016-11-01] MEDS: MOTRIN PO SCH ×3 (01:29→18:45)
[2016-11-01] MEDS: NORCO 5/325 PO PRN ×2 (04:40→20:40)
[2016-11-01] MEDS ORDERED: PRENATAL VITAMIN PO SCH (10:00)
--- NOTE | 2016-11-01 10:28 | Progress Note ---
Assessment and Plan A: PP Day #1 Stable P: Follow Routine Orders Depo Provera prior to discharge RTO in One Week for Circumcision RTO in Six Weeks for Exam D/C Home in the AM Subjective - Subjective Date of service: 11/01/16 Principal diagnosis: IOL Patient reports: appetite normal, voiding normally, pain well controlled, flatus , ambulating normally : doing well, bottle feeding (and ) Objective - Vital Signs Latest vital signs: Vital Signs Temp Pulse Pulse Resp BP BP Pulse Ox 11/01/16 05:40 98.9 F 11/01/16 04:40 20 11/01/16 04:00 98.6 F 77 16 129/70 11/01/16 00:00 99.9 F H 103 H 18 134/74 10/31/16 23:02 113 H 135/68 10/31/16 23:01 110 H 136/67 10/31/16 22:59 112 H 139/67 10/31/16 22:45 111 H 162/70 10/31/16 22:42 117 H 160/65 10/31/16 22:19 150 H 60 H 10/31/16 22:16 125 H 146/62 10/31/16 22:01 126 H 111/54 10/31/16 21:45 129 H 137/65 10/31/16 21:41 126 H 87 10/31/16 21:36 143 H 87 10/31/16 21:35 40 L 91 10/31/16 21:31 139 H 132/71 73 L 10/31/16 21:30 125 H 72 L 10/31/16 21:26 122 H 100 10/31/16 21:24 126 H 88 10/31/16 21:21 121 H 100 10/31/16 21:16 122 H 97 10/31/16 21:15 123 H 145/65 10/31/16 21:12 109 H 80 L 10/31/16 21:11 138 H 0 L 10/31/16 21:04 120 H 100 10/31/16 21:02 122 H 143/65 10/31/16 20:59 120 H 100 10/31/16 20:56 108 H 79 L 10/31/16 20:54 124 H 100 10/31/16 20:49 96 H 100 10/31/16 20:46 103 H 140/63 10/31/16 20:44 109 H 100 10/31/16 20:39 95 H 100 10/31/16 20:34 95 H 100 10/31/16 20:30 99 H 141/57 10/31/16 20:29 94 H 100 10/31/16 20:24 96 H 100 10/31/16 20:19 105 H 100 10/31/16 20:18 98.8 F 18 10/31/16 20:16 100 H 140/66 10/31/16 20:14 101 H 100 10/31/16 20:09 120 H 100 10/31/16 19:57 125 H 100 10/31/16 19:52 129 H 100 10/31/16 19:47 115 H 100 10/31/16 19:45 110 H 109/56 10/31/16 19:42 120 H 100 10/31/16 19:40 110 H 166/71 10/31/16 19:37 116 H 100 10/31/16 19:32 108 H 100 10/31/16 19:27 92 H 100 10/31/16 19:25 108 H 114/60 10/31/16 19:22 114 H 100 10/31/16 19:17 99.2 F 107 H 20 100 10/31/16 19:12 113 H 100 10/31/16 19:10 107 H 125/62 10/31/16 19:07 100 H 100 10/31/16 19:02 105 H 100 10/31/16 18:57 105 H 100 10/31/16 18:56 105 H 114/54 10/31/16 18:52 105 H 100 10/31/16 18:47 130 H 98 10/31/16 18:42 110 H 100 10/31/16 18:40 112 H 144/75 10/31/16 18:37 98 H 100 10/31/16 18:32 114 H 100 10/31/16 18:27 113 H 100 10/31/16 18:25 111 H 143/70 10/31/16 18:22 115 H 100 10/31/16 18:17 115 H 100 10/31/16 18:12 127 H 100 10/31/16 18:10 122 H 141/85 10/31/16 18:07 122 H 100 10/31/16 18:02 117 H 100 10/31/16 17:57 114 H 100 10/31/16 17:52 115 H 100 10/31/16 17:47 113 H 100 10/31/16 17:42 119 H 100 10/31/16 17:40 121 H 138/63 10/31/16 17:37 122 H 100 10/31/16 17:32 118 H 100 10/31/16 17:30 98.6 F 18 10/31/16 17:23 125 H 100 10/31/16 17:18 107 H 100 10/31/16 17:13 114 H 100 10/31/16 17:11 105 H 148/63 10/31/16 17:08 103 H 100 10/31/16 17:03 88 100 10/31/16 16:58 103 H 100 10/31/16 16:55 106 H 131/63 10/31/16 16:53 100 H 100 10/31/16 16:52 101 H 131/55 10/31/16 16:48 104 H 100 10/31/16 16:43 100 H 100 10/31/16 16:38 98 H 100 10/31/16 16:33 94 H 100 10/31/16 16:28 86 100 10/31/16 16:25 90 124/62 10/31/16 16:23 100 H 100 10/31/16 16:18 94 H 100 10/31/16 16:13 88 100 10/31/16 16:10 100 H 129/78 10/31/16 16:08 85 100 10/31/16 16:03 92 H 100 10/31/16 15:58 90 100 10/31/16 15:54 91 H 133/76 10/31/16 15:53 87 100 10/31/16 15:48 93 H 100 10/31/16 15:43 93 H 100 10/31/16 15:39 96 H 129/69 10/31/16 15:38 93 H 99 10/31/16 15:33 92 H 100 10/31/16 15:28 94 H 100 10/31/16 15:25 93 H 124/66 10/31/16 15:23 88 100 10/31/16 15:18 98 H 100 10/31/16 15:16 101 H 138/70 10/31/16 15:13 93 H 100 10/31/16 15:11 90 132/68 10/31/16 15:08 98 H 100 10/31/16 15:03 94 H 100 10/31/16 14:58 90 100 10/31/16 14:55 92 H 128/56 10/31/16 14:53 95 H 100 10/31/16 14:48 93 H 100 10/31/16 14:43 91 H 100 10/31/16 14:40 95 H 117/57 10/31/16 14:38 89 100 10/31/16 14:33 81 100 10/31/16 14:28 84 100 10/31/16 14:25 86 128/69 10/31/16 14:23 84 100 10/31/16 14:18 78 100 10/31/16 14:13 84 100 10/31/16 14:11 80 125/59 10/31/16 14:08 76 100 10/31/16 14:03 79 100 10/31/16 13:58 81 100 10/31/16 13:54 82 123/59 10/31/16 13:53 76 100 10/31/16 13:50 97.9 F 18 10/31/16 13:48 79 100 10/31/16 13:43 89 100 10/31/16 13:39 83 129/58 10/31/16 13:38 79 100 10/31/16 13:37 86 126/60 10/31/16 13:35 95 H 128/58 10/31/16 13:33 87 127/60 100 10/31/16 13:31 90 135/62 10/31/16 13:29 90 132/58 10/31/16 13:28 87 97 10/31/16 13:27 96 H 138/63 10/31/16 13:25 93 H 129/57 10/31/16 13:23 91 H 131/62 99 10/31/16 13:21 85 124/56 10/31/16 13:19 86 127/57 10/31/16 13:18 92 H 100 10/31/16 13:17 92 H 125/60 10/31/16 13:15 103 H 127/60 10/31/16 13:13 96 H 132/67 97 10/31/16 12:31 92 H 135/62 10/31/16 11:31 92 H 140/73 10/31/16 10:30 82 119/58 Intake and Output 10/31/16 11/01/16 11/01/16 22:59 06:59 14:59 Intake Total 1000 300 Output Total 1700 600 Balance -700 -300 Intake: IV 1000 Lactated Ringers 1,000 ml 1000 @ 125 mls/hr IV DIRECT CHELSEA Rx#:[id number] Intake, Free Water 300 Output: Urine 1700 600 Indwelling Catheter 1700 Void 600 Other: Total, Output Amount 100 600 # Voids Void 1 Estimated Blood Loss 250 - Exam Breasts: Present: normal Cardiovascular: Present: Regular rate Lungs: Present: Clear to auscultation, Normal air movement Abdomen: Present: normal appearance, soft, normal bowel sounds Uterus: Present: normal, firm, fundal height below umbilicus Extremities: Present: normal - Labs Labs: Abnormal lab results 10/31/16 10/31/16 Range/Units 22:16 22:23 POC ABG pH 7.331 L 7.318 L (7.35-7.45) POC ABG pCO2 33.6 L 33.6 L (35-45) POC ABG pO2 39 L 38 L (80-105)
[2016-11-01] MEDS ORDERED: DEPO-PROVERA (CONTRACEPTION) IM NR (10:30)
--- NOTE | 2016-11-01 10:30 | Discharge Summary ---
Providers - Providers Date of Admission: 10/30/16 08:51 Date of discharge: 11/02/16 Attending physician: JAYMIE BAH MD Primary care physician: JAYMIE BAH MD Hospitalization Reason for admission: induction of labor Delivery: Episiotomy: none Laceration: 1st degree Other procedures: none complications: none Discharge diagnosis: IUP at term delivered [place] baby: male Condition at discharge: Good Disposition: DISCHARGED TO HOME OR SELFCARE Plan - Provider Discharge Summary Activity: routine, no sex for 6 weeks, no heavy lifting 4 weeks, no strenuous exercise Diet: routine Instructions: routine Additional instructions: [] Smoking cessation referral if applicable(refer to patient education folder for contact #) [] Refer to [facility]'s [facility] Booklet Call your doctor immediately for: * Fever > 100.5 * Heavy vaginal bleeding ( >1 pad per hour) * Severe persistent headache * Shortness of breath * Reddened, hot, painful area to leg or breast * Drainage or odor from incision. * Keep incision clean and dry at all times and follow doctor's instructions regarding bathing/showering - Follow up plan Follow up: ALICIA REED CNM [Advanced Practice Nurse] - 6 Weeks
[2016-11-01] MEDS: COLACE PO SCH ×2 (13:04→22:11)
[2016-11-01 13:18] LABS: Hematocrit 35.1 % (30.3-42.9); Hemoglobin 11.1 gm/dl (10.1-14.3)
--- NOTE | 2016-11-01 13:28 | Progress Note ---
Subjective Date of service: 11/01/16 Principal diagnosis: IOL Interval history: 1st day after normal vaginal delivery Patient is in the bed, comfortable. Pain is mostly controlled with pain meds. Ambulated well. No nausea or vomiting. No residual neurological deficit. No anesthesia complications Objective - Constitutional Vitals: Vital Signs - 12hr 11/01/16 11/01/16 11/01/16 04:00 04:40 05:40 Temperature 98.6 F 98.9 F Pulse Rate [ 77 From Monitor] Respiratory 16 20 Rate Blood Pressure 129/70 [Right Arm] 11/01/16 11:41 Temperature 98.9 F Pulse Rate [ 106 H From Monitor] Respiratory 18 Rate Blood Pressure 139/62 [Right Arm] - Labs CBC & Chem 7: 11/01/16 12:58 10/30/16 10:30 Labs: Abnormal lab results 10/31/16 10/31/16 Range/Units 22:16 22:23 POC ABG pH 7.331 L 7.318 L (7.35-7.45) POC ABG pCO2 33.6 L 33.6 L (35-45) POC ABG pO2 39 L 38 L (80-105)
[2016-11-02] MEDS: MOTRIN PO SCH (02:25)
[2016-11-02] MEDS ORDERED: BOOSTRIX IM ONE (06:00)
[2016-11-02 10:12] VITALS: BP 128/70
== END 2016-11-02 10:30 | disposition home or self-care (01) | DRG 774 ==
LOC: TRG 08:47 → LD 08:51 → OB 11-01 00:15
PROVIDERS: ADMIT Obstetrics & Gynecology; ATTEND Obstetrics & Gynecology
PROC: 10E0XZZ Delivery of Products of Conception, External Approach (ICD-10-PCS; principal; 2016-10-30)
PROC: 3E0S3CZ (ICD-10-PCS; 2016-10-30)
PROC: 0HQ9XZZ Repair Perineum Skin, External Approach (ICD-10-PCS; 2016-10-30)
PROC: 3E0P7GC Introduction of Other Therapeutic Substance into Female Reproductive, Via Natural or Artificial Opening (ICD-10-PCS; 2016-10-30)
PROC: 00HU33Z Insertion of Infusion Device into Spinal Canal, Percutaneous Approach (ICD-10-PCS; 2016-10-30)
DX: O13.4 Gestational [pregnancy-induced] hypertension without significant proteinuria, complicating childbirth (principal); Z3A.39 39 weeks gestation of pregnancy; Z37.0 Single live birth; O77.0 Labor and delivery complicated by meconium in amniotic fluid; O63.1 Prolonged second stage (of labor); O76 Abnormality in fetal heart rate and rhythm complicating labor and delivery; O69.1XX0 Labor and delivery complicated by cord around neck, with compression, not applicable or unspecified; O70.0 First degree perineal laceration during delivery
CPT/HCPCS: 36415; 81001; 82565; 82803; 83615; 84450; 84460; 84550; 85014; 85018; 85027; 86850; 86900; 86901; 88307; 90471; 90715; J0595; J1050; J2590; J2765; J7030; J7120

== ENCOUNTER 2020-07-22 20:01 | Outpatient (CLI) | payer MEDICAID, OTHER ==
[2020-07-22 20:26] VITALS: BP 120/69
[2020-07-22] MEDS ORDERED: LACTATED RINGERS 1,000 ML IV ONE (20:34)
[2020-07-22 21:39] LABS: Bacteria,Urine 2+ /HPF (Negative); Bilirubin,Urine NEG (Negative); Blood,Urine NEG (Negative); Color,Urine Yellow (Yellow); Hyaline Casts,Urine 2 /LPF; Mucus,Urine FEW /HPF
== END 2020-07-22 22:07 | disposition home or self-care (01) ==
LOC: TRG 20:01 → APU 20:11 → TRG 22:07
PROVIDERS: ATTEND Obstetrics & Gynecology
DX: O36.8130 Decreased fetal movements, third trimester, not applicable or unspecified (principal); Z3A.34 34 weeks gestation of pregnancy
CPT/HCPCS: 59025; 81001; 87086